=== PATIENT | female | born 1990 | race Asian ===

== ENCOUNTER 2019-06-17 14:30 | Inpatient (IN) | payer OTHER ==
[2019-06-17] MEDS: DEXTROSE 5%-LACTATED RINGERS 1,000 ML IV SCH ×2 (15:00→23:00)
[2019-06-17] MEDS ORDERED: DINOPROSTONE 10 MG VAGINAL SUPPOSITORY VG ONE (16:25)
[2019-06-17 16:45] VITALS: BMI 28.3
--- NOTE | 2019-06-17 16:50 | HP ---
Past Medical History - Admission Chief Complaint: Elective induction History of Present Illness: 28 yo , with on prior , admitted for induction of labor. She's 39 weeks; EDC 06/19/19. Upon admission she was 1cm dilated. History Source: Patient Limitations to Obtaining History: No Limitations - Past Medical History ...: 3 ...Para: 1 ...EDC by Luís: 06/19/19 - Past Surgical History Past Surgical History: Yes: None Hx Myomectomy: No Hx Transabdominal Cerclage: No - Smoking History Have you smoked in the past 12 months: No - Alcohol/Substance Use Hx Alcohol Use: No History of Substance Use: reports: None - Social History Usual Living Arrangement: Yes: With Spouse History of Recent Travel: No Home Medications - Allergies Allergies/Adverse Reactions: Allergies Allergy/AdvReac Type Severity Reaction Status Date / Time No Known Allergies Allergy Verified 06/17/19 15:47 - Home Medications Home Medications: Ambulatory Orders Tablet 1 tab PO DAILY 06/17/19 Family Medical History Family History: Unremarkable Review of Systems - Review of Systems Constitutional: reports: No Symptoms Eyes: reports: No Symptoms HENT: reports: No Symptoms Neck: reports: No Symptoms Cardiovascular: reports: No Symptoms Respiratory: reports: No Symptoms Gastrointestinal: reports: No Symptoms Genitourinary: reports: No Symptoms Breasts: reports: No Symptoms Reported Musculoskeletal: reports: No Symptoms Neurological: reports: No Symptoms Endocrine: reports: No Symptoms Hematology/Lymphatic: reports: No Symptoms Psychiatric: reports: No Symptoms Pain Intensity: 0 Physical Exam - Maternity Constitutional: Yes: No Distress Eyes: Yes: Conjunctiva Clear HENT: Yes: Atraumatic Neck: Yes: Supple Cardiovascular: Yes: Regular Rate and Rhythm Lungs: Clear to auscultation - Abdominal Exam/OB Number of Fetuses: Single Presentation: Vertex Intensity: Mild - Vaginal Exam/OB Dilatation (cm): 1 Effacement (%): 70 Presentation: Vertex/Position Station: -2 - Physical Exam Integumentary: Yes: WNL ...Motor Strength: WNL Psychiatric: Yes: Alert, Oriented Problem List - Problems (1) 39 weeks gestation of Problems reviewed: Yes Code(s): Z3A.39 - 39 WEEKS GESTATION OF Assessment/Plan 39 weeks gestation Poor obstetric Admit for cervidil induction
[2019-06-17 17:44] LABS: BASO % 0.1 % (0-2.0); EOS % 0.2 % (0-4.5); HEMATOCRIT 32.8 % (32.4-45.2); HEMOGLOBIN 11.1 GM/dL (10.7-15.3); LYMPH % 16.6 % (8-40); MCH 27.5 pg (25.7-33.7); MCHC 33.8 g/dl (32.0-36.0); MEAN CELL VOLUME 81.6 fl (80-96); MEAN PLT VOLUME 9.6 fl (7.5-11.1); MONO % 5.7 % (3.8-10.2); NEUT % 77.4 % (42.8-82.8); PLATELET COUNT 192 K/MM3 (134-434); RBC 4.02 M/mm3 (3.60-5.2); RDW 14.8 % (11.6-15.6); WHITE BLOOD COUNT 8.4 K/mm3 (4.0-10.0)
[2019-06-17 17:56] LABS: PROTHROMBIN TIME (PATIENT) 11.8 SEC (9.7-13.0)
[2019-06-17 17:59] LABS: ACTIVATED PTT 29.6 SECONDS (25.2-36.5)
[2019-06-17 18:07] LABS: BLOOD UREA NITROGEN 8.1 mg/dL (7-18); CALCIUM 8.7 mg/dL (8.5-10.1); CREATININE 0.3 mg/dL (0.55-1.3); POTASSIUM 3.9 mmol/L (3.5-5.1)
[2019-06-17] MEDS ORDERED: BUTORPHANOL TARTRATE 1 MG/ML VIAL ONE ×2 (22:38)
[2019-06-17] MEDS ORDERED: PROMETHAZINE HCL 25 MG/1 ML VIAL ONE (22:38)
[2019-06-17] MEDS ORDERED: AMPICILLIN - 2 GM in SODIUM CHLORIDE 100 ML IVPB ONE ×2 (22:39→23:00)
[2019-06-17] MEDS ORDERED: AMPICILLIN SODIUM 2 GM VIAL ONE (22:39)
[2019-06-17] MEDS ORDERED: BUTORPHANOL TARTRATE 1 MG/ML VIAL IVPUSH ONE (22:40)
[2019-06-17] MEDS ORDERED: PROMETHAZINE HCL 25 MG/1 ML VIAL IVPB PRN (22:41)
[2019-06-18] MEDS: AMPICILLIN - 1 GM in SODIUM CHLORIDE 100 ML IVPB SCH ×3 (03:00→10:11)
[2019-06-18] MEDS ORDERED: AMPICILLIN SODIUM 1 GM VIAL ONE (03:01)
[2019-06-18] MEDS ORDERED: LIDOCAINE HCL 1% PRESERVATIVE FREE - 30ML VIAL ONE (07:00)
[2019-06-18] MEDS ORDERED: OXYTOCIN 20 UNITS in 0.9% NS 20 UNIT/1,000 ML INFUS.BAG IV ONE ×2 (07:01→10:26)
[2019-06-18] MEDS ORDERED: WITCH HAZEL 50% (TUCKS) 40 PAD/JAR PAD TP PRN (07:14)
[2019-06-18] MEDS ORDERED: BENZOCAINE 28 GM HEMORRHOIDAL OINTMENT TP PRN (07:14)
[2019-06-18] MEDS ORDERED: BISACODYL 10 MG SUPP.RECT RC PRN (07:14)
[2019-06-18] MEDS ORDERED: BENZOCAINE 20% 57 GM BOTTLE TP PRN (07:14)
[2019-06-18] MEDS ORDERED: METHYLERGONOVINE MALEATE 0.2 MG/1 ML AMP IM PRN (07:14)
[2019-06-18] MEDS ORDERED: OXYTOCIN 20 UNITS in 0.9% NS 20 UNIT/1,000 ML INFUS.BAG IV SCH (07:15)
--- NOTE | 2019-06-18 07:18 | PN ---
Delivery - Delivery Vaginal Delivery: Spontaneous Type of Anesthesia: Local EBL (cc): 300 Delivery, Single - 1 Minute Total Score: 9 5 Minutes Total Score: 9 - [place] Feeding Plan Initial Plan: Exclusive throughout hospitalization Remarks - Remarks Remarks: Normal spontaneous vaginal delivery of a live girl over first degree laceration. Nose / Oropharynx suctioned @ perineum. Cord clamped and cut. Baby handed to nurse. Placenta expelled spontaneously intact. Laceration repaired with 2.0 Chromic.
[2019-06-18] MEDS: IBUPROFEN 600 MG TABLET (FP) PO PRN ×3 (07:35→21:20)
[2019-06-18] MEDS: ACETAMINOPHEN 325 MG TABLET (FP) PO PRN ×3 (07:35→21:20)
[2019-06-18] MEDS: FERROUS SO4 325 MG TABLET (FP) PO SCH ×2 (10:00→21:20)
[2019-06-18] MEDS: PRENATAL VITAMINS W/ FOLIC ACID TABLET (FP) PO SCH (10:00)
[2019-06-18] MEDS: DEXTROSE 5%-LACTATED RINGERS 1,000 ML IV SCH (19:49)
[2019-06-19 08:38] LABS: BASO % 0.6 % (0-2.0); EOS % 0.9 % (0-4.5); HEMATOCRIT 30.3 % (32.4-45.2); HEMOGLOBIN 10.3 GM/dL (10.7-15.3); MCH 27.8 pg (25.7-33.7); MCHC 33.8 g/dl (32.0-36.0); MEAN CELL VOLUME 82.1 fl (80-96); MEAN PLT VOLUME 9.7 fl (7.5-11.1); MONO % 6.2 % (3.8-10.2); NEUT % 73.3 % (42.8-82.8); PLATELET COUNT 172 K/MM3 (134-434); RDW 14.9 % (11.6-15.6)
--- NOTE | 2019-06-19 08:41 | PN ---
Post Progress Note - Subjective Subjective: 28 yo Para 2 status post vaginal delivery, seen and evaluated. Doing well Post Day: 1 Type of Delivery: Vital Signs: Vital Signs Temperature 98.0 F 06/19/19 06:00 Pulse Rate 85 06/19/19 06:00 Respiratory Rate 20 06/19/19 06:00 Blood Pressure 115/64 06/19/19 06:00 O2 Sat by Pulse Oximetry (%) 99 06/18/19 11:30 Breast Exam: Yes: Soft Uterus: Yes: Fundus Firm Abdomen/GI: Yes: Abdomen soft, Tolerating PO Lochia: Yes: Rubra Lochia, amount: Small Extremities: Yes: Calves non-tender Perineum: Yes: Laceration (Healing) Activity: Ambulating - Labs Labs: CBC WBC 8.4 K/mm3 (4.0-10.0) 06/17/19 17:00 RBC 4.02 M/mm3 (3.60-5.2) 06/17/19 17:00 Hgb 11.1 GM/dL (10.7-15.3) 06/17/19 17:00 Hct 32.8 % (32.4-45.2) 06/17/19 17:00 MCV 81.6 fl (80-96) 06/17/19 17:00 MCH 27.5 pg (25.7-33.7) 06/17/19 17:00 MCHC 33.8 g/dl (32.0-36.0) 06/17/19 17:00 RDW 14.8 % (11.6-15.6) 06/17/19 17:00 Plt Count 192 K/MM3 (134-434) 06/17/19 17:00 MPV 9.6 fl (7.5-11.1) 06/17/19 17:00 Absolute Neuts (auto) 6.5 K/mm3 (1.5-8.0) 06/17/19 17:00 Neutrophils % 77.4 % (42.8-82.8) 06/17/19 17:00 Lymphocytes % 16.6 % (8-40) 06/17/19 17:00 Monocytes % 5.7 % (3.8-10.2) 06/17/19 17:00 Eosinophils % 0.2 % (0-4.5) 06/17/19 17:00 Basophils % 0.1 % (0-2.0) 06/17/19 17:00 Nucleated RBC % 0 % (0-0) 06/17/19 17:00 Problem List - Problems (1) 39 weeks gestation of Problems reviewed: Yes Code(s): Z3A.39 - 39 WEEKS GESTATION OF (2) Status post normal vaginal delivery Problems reviewed: Yes Code(s): AZW7629 - Assessment/Plan Status post vaginal delivery Stable Continue routine care
[2019-06-19] MEDS: PRENATAL VITAMINS W/ FOLIC ACID TABLET (FP) PO SCH (10:00)
[2019-06-19] MEDS: FERROUS SO4 325 MG TABLET (FP) PO SCH ×2 (10:00→21:07)
[2019-06-19] MEDS: ACETAMINOPHEN 325 MG TABLET (FP) PO PRN (21:06)
[2019-06-19] MEDS: IBUPROFEN 600 MG TABLET (FP) PO PRN (21:06)
[2019-06-19] MEDS ORDERED: SENNOSIDES/DOCUSATE COMBO (SENNA PLUS) TABLET (UD) PO PRN (22:00)
[2019-06-20] MEDS: ACETAMINOPHEN 325 MG TABLET (FP) PO PRN (09:16)
[2019-06-20] MEDS: FERROUS SO4 325 MG TABLET (FP) PO SCH (09:17)
[2019-06-20] MEDS: PRENATAL VITAMINS W/ FOLIC ACID TABLET (FP) PO SCH (09:17)
[2019-06-20] MEDS: IBUPROFEN 600 MG TABLET (FP) PO PRN (09:17)
[2019-06-20 12:21] VITALS: BP 103/72; PULSE 65; TEMP 98.1
--- NOTE | 2019-06-20 13:30 | PN ---
Post Progress Note Type of Delivery: Vital Signs: Vital Signs Temperature 98.1 F 06/20/19 11:30 Pulse Rate 65 06/20/19 11:30 Respiratory Rate 20 06/20/19 11:30 Blood Pressure 103/72 06/20/19 11:30 O2 Sat by Pulse Oximetry (%) 99 06/18/19 11:30 Breast Exam: Yes: Soft Uterus: Yes: Fundus Firm Incision: Yes: Dressing dry and intact Abdomen/GI: Yes: Abdomen soft Lochia: Yes: Rubra Lochia, amount: Small Extremities: Yes: Calves non-tender Perineum: Yes: Intact Activity: Ambulating - Labs Labs: CBC WBC 8.0 K/mm3 (4.0-10.0) 06/19/19 08:08 RBC 3.70 M/mm3 (3.60-5.2) 06/19/19 08:08 Hgb 10.3 GM/dL (10.7-15.3) L 06/19/19 08:08 Hct 30.3 % (32.4-45.2) L 06/19/19 08:08 MCV 82.1 fl (80-96) 06/19/19 08:08 MCH 27.8 pg (25.7-33.7) 06/19/19 08:08 MCHC 33.8 g/dl (32.0-36.0) 06/19/19 08:08 RDW 14.9 % (11.6-15.6) 06/19/19 08:08 Plt Count 172 K/MM3 (134-434) 06/19/19 08:08 MPV 9.7 fl (7.5-11.1) 06/19/19 08:08 Absolute Neuts (auto) 5.9 K/mm3 (1.5-8.0) 06/19/19 08:08 Neutrophils % 73.3 % (42.8-82.8) 06/19/19 08:08 Lymphocytes % 19.0 % (8-40) 06/19/19 08:08 Monocytes % 6.2 % (3.8-10.2) 06/19/19 08:08 Eosinophils % 0.9 % (0-4.5) D 06/19/19 08:08 Basophils % 0.6 % (0-2.0) D 06/19/19 08:08 Nucleated RBC % 0 % (0-0) 06/19/19 08:08 Problem List - Problems (1) 39 weeks gestation of Code(s): Z3A.39 - 39 WEEKS GESTATION OF (2) Status post normal vaginal delivery Code(s): GHK6790 - Assessment/Plan Exam WNL. No problems. Patient is happy. Instructions given. Discharge.
--- NOTE | 2019-06-25 07:08 | DS ---
Physical Exam-CHIEF PSYCHOLOGY Vital Signs: Vital Signs Temperature 98.1 F 06/20/19 11:30 Pulse Rate 65 06/20/19 11:30 Respiratory Rate 20 06/20/19 11:30 Blood Pressure 103/72 06/20/19 11:30 O2 Sat by Pulse Oximetry (%) 99 06/18/19 11:30 Constitutional: Yes: No Distress Eyes: Yes: Conjunctiva Clear HENT: Yes: Atraumatic Neck: Yes: Supple Cardiovascular: Yes: Regular Rate and Rhythm Respiratory: Yes: Regular Gastrointestinal: Yes: Normal Bowel Sounds ...Rectal Exam: Yes: WNL Renal/: Yes: WNL Pelvis: Yes: WNL External Genitalia: Yes: Normal Vaginal Exam: Yes: Normal Cervix: Yes: Normal ....Post : Yes: Uterus firm Breast(s): Yes: WNL Musculoskeletal: Yes: WNL Neurological: Yes: Alert, Oriented Psychiatric: Yes: Alert, Oriented Labs: CBC, BMP 06/19/19 08:08 06/17/19 15:15 Delivery - Delivery Vaginal Delivery: Spontaneous Type of Anesthesia: Local Episiotomy/Laceration: Perineal Extension/lac, 1st degree EBL (cc): 300 Delivery, Single - Stages of Labor Date 1st Stage Initiatied: 06/17/19 Time 1st Stage Initiated: 23:00 Date 2nd Stage Initiated: 06/18/19 Time 2nd Stage Initiated: 07:00 Date of Delivery: 06/18/19 Time of Delivery: 07:03 Time Placenta Delivered: 07:06 - Condition of Engineering Technician/Transit Mixer Operator Present: No Gender: Female Weight: 7 lb 2 oz Position: Right, OA Total Hours ROM (Hrs/Mins): 1hr/26mins - 1 Minute Total Score: 9 5 Minutes Total Score: 9 - [place] Feeding Plan Initial Plan: Exclusive throughout hospitalization Discharge Summary Problems reviewed: Yes Reason For Visit: INDUCTION OF LABOR Procedures: Principal: Normal spontaneous vaginal delivery Hospital Course: Routine care Health Concerns: None Plan of Treatment: Ambulation Analgesia as needed F/U with MD in 6 weeks Goals: Resume normal activities in 6 weeks Condition: Stable - Instructions Diet, Activity, Other Instructions: Pt instructed to call office for 6 week follow up appointment. Disposition: HOME - Home Medications Comprehensive Discharge Medication List: Ambulatory Orders Tablet 1 tab PO DAILY 06/17/19
== END 2019-06-20 14:00 | disposition home or self-care (01) | DRG 560 ==
LOC: JLDR 14:30 → J3N 06-18 11:03 → J3W 06-19 14:45
PROVIDERS: ADMIT Obstetrics & Gynecology; ATTEND Obstetrics & Gynecology
PROC: 3E0P7VZ Introduction of Hormone into Female Reproductive, Via Natural or Artificial Opening (ICD-10-PCS; 2019-06-17)
PROC: 0HQ9XZZ Repair Perineum Skin, External Approach (ICD-10-PCS; principal; 2019-06-18)
PROC: 10E0XZZ Delivery of Products of Conception, External Approach (ICD-10-PCS; 2019-06-18)
DX: O70.0 First degree perineal laceration during delivery (principal); Z3A.39 39 weeks gestation of pregnancy; Z37.0 Single live birth
CPT/HCPCS: 36415; 59409; 80048; 85025; 85610; 85730; 86593; 86850; 86900; 86901; 87389

== ENCOUNTER 2022-12-31 19:35 | Inpatient (IN) | payer OTHER ==
[2022-12-31] MEDS ORDERED: DEXTROSE 5%-LACTATED RINGERS 1,000 ML IV SCH (21:30)
[2022-12-31 21:40] LABS: BASO % 0.5 % (0-2.0); EOS % 0.2 % (0-4.5); HEMATOCRIT 29.6 % (32.4-45.2); HEMOGLOBIN 9.9 GM/dL (10.7-15.3); MCH 24.8 pg (25.7-33.7); MCHC 33.3 g/dl (32.0-36.0); MEAN CELL VOLUME 74.4 fl (80-96); MEAN PLT VOLUME 10.2 fl (7.5-11.1); MONO % 6.4 % (3.8-10.2); NEUT % 68.9 % (42.8-82.8); PLATELET COUNT 166 10^3/uL (134-434); RBC 3.98 M/mm3 (3.60-5.2); RDW 15.2 % (11.6-15.6); WHITE BLOOD COUNT 6.6 K/mm3 (4.0-10.0)
[2022-12-31 21:52] LABS: INR 1.04 (0.83-1.09); PROTHROMBIN TIME (PATIENT) 12.1 SEC (9.7-13.0)
[2022-12-31 21:54] LABS: ACTIVATED PTT 29.5 SECONDS (25.2-36.5)
[2022-12-31 22:40] LABS: POTASSIUM 4.4 mmol/L (3.5-5.1)
[2022-12-31 22:42] LABS: CALCIUM 8.2 mg/dL (8.5-10.1)
[2022-12-31 22:43] LABS: BLOOD UREA NITROGEN 7.2 mg/dL (7-18)
[2022-12-31 22:46] LABS: CREATININE 0.4 mg/dL (0.55-1.3)
[2022-12-31] MEDS: MISOPROSTOL 100 MCG TABLET PV SCH (22:50)
[2023-01-01 00:19] VITALS: BMI 27.4
[2023-01-01] MEDS ORDERED: OXYTOCIN 20 UNITS in 0.9% NS 20 UNIT/1,000 ML INFUS.BAG IV ONE (03:02)
[2023-01-01 04:02] LABS: CORD BASE EXCESS -2.6 mmol/L (0-2); CORD BASE EXCESS -6.4 mmol/L (0-2); CORD HCO3 22.3 mmHg (20-29); CORD PCO2 43.1 mmHg (30-78); CORD PCO2 57.9 mmHg (30-78); CORD pH 7.203 (7.14-7.44); CORD pH 7.345 (7.14-7.44)
[2023-01-01] MEDS ORDERED: WITCH HAZEL 50% (TUCKS) 40 PAD/JAR PAD TP PRN (04:12)
[2023-01-01] MEDS ORDERED: BENZOCAINE 28 GM HEMORRHOIDAL OINTMENT TP PRN (04:12)
[2023-01-01] MEDS ORDERED: ACETAMINOPHEN 325 MG TABLET (FP) PO PRN (04:12)
[2023-01-01] MEDS ORDERED: OXYTOCIN 20 UNITS in 0.9% NS 20 UNIT/1,000 ML INFUS.BAG IV SCH (04:15)
[2023-01-01] MEDS: FERROUS SO4 325 MG TABLET (FP) PO SCH ×3 (07:54→16:55)
[2023-01-01] MEDS: IBUPROFEN 600 MG TABLET (FP) PO PRN ×2 (07:54→16:56)
[2023-01-01] MEDS: PRENATAL VITAMINS W/ FOLIC ACID TABLET (FP) PO SCH (11:06)
[2023-01-01] MEDS: MISOPROSTOL 100 MCG TABLET PV SCH ×2 (18:38→19:10)
[2023-01-02 08:23] LABS: BASO % 0.6 % (0-2.0); EOS % 1.1 % (0-4.5); HEMATOCRIT 28.1 % (32.4-45.2); HEMOGLOBIN 9.1 GM/dL (10.7-15.3); LYMPH % 20.9 % (8-40); MCHC 32.4 g/dl (32.0-36.0); MEAN CELL VOLUME 77.3 fl (80-96); MEAN PLT VOLUME 10.7 fl (7.5-11.1); MONO % 6.9 % (3.8-10.2); NEUT % 70.5 % (42.8-82.8); PLATELET COUNT 157 10^3/uL (134-434); RBC 3.64 M/mm3 (3.60-5.2); RDW 15.8 % (11.6-15.6); WHITE BLOOD COUNT 7.5 K/mm3 (4.0-10.0)
[2023-01-02] MEDS: PRENATAL VITAMINS W/ FOLIC ACID TABLET (FP) PO SCH (09:23)
[2023-01-02] MEDS: FERROUS SO4 325 MG TABLET (FP) PO SCH ×3 (09:23→17:08)
[2023-01-02 22:05] VITALS: RESP 18
[2023-01-03] MEDS: FERROUS SO4 325 MG TABLET (FP) PO SCH (10:10)
[2023-01-03] MEDS: PRENATAL VITAMINS W/ FOLIC ACID TABLET (FP) PO SCH (10:10)
[2023-01-03 10:20] VITALS: BP 105/65; PULSE 98; TEMP 98.1
== END 2023-01-03 13:40 | disposition home or self-care (01) | DRG 560 ==
LOC: JLDR 19:35 → UNDOADMIN 20:27 → J3W 01-01 05:16
PROVIDERS: ADMIT Obstetrics & Gynecology Maternal & Fetal Medicine; ATTEND Obstetrics & Gynecology Maternal & Fetal Medicine
PROC: 0HQ9XZZ Repair Perineum Skin, External Approach (ICD-10-PCS; principal; 2023-01-01)
PROC: 10E0XZZ Delivery of Products of Conception, External Approach (ICD-10-PCS; 2023-01-01)
DX: O24.420 Gestational diabetes mellitus in childbirth, diet controlled (principal); O13.4 Gestational [pregnancy-induced] hypertension without significant proteinuria, complicating childbirth; O99.02 Anemia complicating childbirth; D64.9 Anemia, unspecified; O70.0 First degree perineal laceration during delivery; Z3A.39 39 weeks gestation of pregnancy; Z37.0 Single live birth
CPT/HCPCS: 36415; 36600; 80048; 82803; 82962; 85025; 85610; 85730; 86780; 86850; 86900; 86901; 88307-TC